=== PATIENT | female | born 1945 | race Caucasian/White ===

== ENCOUNTER 2018-04-14 19:56 | Inpatient (IN) | payer OTHER ==
[~2018-04-14] VITALS: Ht 162.6 cm; Wt 63.0 kg
[2018-04-14 19:59] VITALS: BP 89/52
--- NOTE | 2018-04-14 20:05 | NUR ---
AMBULATED TO ER BED 4
--- NOTE | 2018-04-14 20:10 | NUR ---
72 YO F TO ER WITH C/O DIZZINESS, LOSS OF APPITITE AND DIARRHEA X1WK. PT STATE N/V AFTER EATING. PT STATE THAT SHE HAS "COLD SYMPTOMS" AND FEELS WEAK, DISSZY AND LOSS OF APPITITE. PALE WITH PALE MUCOUS MEMBRANES. MILD WEAKNESS TO EXTREMITIES. PT STATES DIARRHEA X1 PER DAY. PT DENIES ANY ABD PAIN OR SOB AT THIS TIME. O2 SAT AT 91%, AFEBRILE . LS WITH CRACKLES AT BILAT BACES . BS PRESENT AND ACTIVE. CAP REFILL <3 SEC, + PERIFERAL PULSES. ER MD MADE AWARE, WILL CONTINUE TO MONITOR .
[2018-04-14] MEDS ORDERED: LEVOFLOXACIN 500 MG/D5W PREMIX 100 ML IV ONE (20:15)
[2018-04-14] MEDS ORDERED: NACL 0.9% 500 ML IV ONE (20:15)
[2018-04-14 20:26] LABS: BASOPHILS % (AUTO) 0.6 % (0.0-2.0); HEMATOCRIT 33.6 % (36-48); HEMOGLOBIN 11.2 g/dL (12.0-16.0); LYMPHOCYTES # (AUTO) 0.9 K/uL (2.5-16.5); MEAN CORPUSCULAR HEMOGLOBIN 29 pg (27-31); MEAN CORPUSCULAR HGB CONC 33 g/dL (33-37); MEAN CORPUSCULAR VOLUME 85.7 fL (80-94); MONOCYTES # (AUTO) 0.7 K/uL (0.8-1.0); MONOCYTES % (AUTO) 8.1 % (1.7-9.3); NEUTROPHILS # (AUTO) 6.7 K/uL (1.8-7.7); NEUTROPHILS % (AUTO) 80.3 % (42.2-75.2); PLATELET COUNT (AUTO) 189 K/uL (140-450); RED BLOOD CELL COUNT(AUTO) 3.92 MIL/uL (4.20-5.40); RED CELL DISTRIBUTION WIDTH 14.7 % (11.6-13.7); WHITE BLOOD COUNT (AUTO) 8.4 K/uL (4.8-10.8)
[2018-04-14] MEDS ORDERED: NACL 0.9% 1,000 ML IV ONE ×3 (20:35→22:55)
[2018-04-14 20:36] LABS: ANION GAP 15.6 (8-16); CARBON DIOXIDE 24.4 mmol/L (21-32); CHLORIDE 90 mmol/L (98-107); GLUCOSE 180 mg/dL (74-106); SODIUM SERUM 127 mmol/L (136-145); UREA NITROGEN, BLOOD 18 mg/dL (7-18)
[2018-04-14 20:41] LABS: ASPARTATE AMINOTRANSFERASE 40 U/L (15-37); TOTAL BILIRUBIN 1.4 mg/dL (0.0-1.0)
[2018-04-14] MEDS ORDERED: VANCOMYCIN 1,000 MG in DEXTROSE 5% 250 ML IV ONE (21:35)
--- NOTE | 2018-04-14 21:45 | NUR ---
LAB AT BEDSIDE DRAWING BLOOD CULTURES
--- NOTE | 2018-04-14 21:49 | NUR ---
X RAY AT BEDSIDE
[2018-04-14] MEDS ORDERED: NOREPINEPHRINE 4 MG in DEXTROSE 5% 250 ML IV ONE (22:00)
[2018-04-14] MEDS ORDERED: VANCOMYCIN 1,000 MG VIAL ONE (22:05)
[2018-04-14 22:06] LABS: APPEARANCE,URINE CLEAR (CLEAR); BILIRUBIN,URINE 1+ (NEGATIVE); BLOOD, URINE 2+ (NEGATIVE); COLOR,URINE YELLOW (YELLOW); LEUKOCYTE ESTERASE ,URINE NEGATIVE (NEGATIVE); NITRITE, URINE NEGATIVE (NEGATIVE); PH,URINE 6.5 (5.0-9.0); UGLUCOSE NEGATIVE (NEGATIVE)
[2018-04-14] MEDS ORDERED: NOREPINEPHRINE 4 MG/4 ML VIAL IV ONE (22:15)
[2018-04-14] MEDS ORDERED: PIPERACILLIN/TAZOBACTAM 4.5 GM in DEXTROSE 5% 100 ML IV ONE (22:15)
[2018-04-14 22:30] LABS: RBC,URINE 0-5 (RARE) /HPF (0-5); WBC,URINE 0-5 (RARE) /HPF (0-5)
[2018-04-14] MEDS ORDERED: DOCUSATE SODIUM 100 MG GELCAP PO PRN (22:45)
[2018-04-14] MEDS ORDERED: ACETAMINOPHEN 325 MG TAB PO PRN (22:45)
[2018-04-14] MEDS ORDERED: MORPHINE SULFATE 4 MG/ML SYR IVP PRN (22:45)
[2018-04-14] MEDS ORDERED: HYDROcodone/APAP 7.5/325 MG 1 TAB PO PRN (22:45)
[2018-04-14 23:02] LABS: PROTHROMBIN TIME 11.4 secs (10.8-13.4)
[2018-04-14 23:17] LABS: CHOL/HDL RATIO 3.3 (1-4.5); FREE T4 (FREE THYROXINE) 1.31 ng/dL (0.76-1.46); MAGNESIUM 1.9 mg/dL (1.8-2.4); PHOSPHORUS 3.1 mg/dL (2.5-4.9); THYROID STIMULATING HORMONE 2.51 uIU/mL (0.34-3.74)
[2018-04-14] MEDS ORDERED: PIPERACILLIN/TAZOBACTAM 2.25 GM VIAL IV ONE (23:22)
--- NOTE | 2018-04-14 23:39 | NUR ---
PT MOVED FROM ER TO ICU 7. PT DESAT BELOW 92%. INCREASED 02 ON NASAL CANNULA TO 5LPM SAT 94 HR 98 RR 16. WILL CONT TO MONITOR.
--- NOTE | 2018-04-14 23:40 | NUR ---
Patient will be admitted to care of DR LAU . Admited to ICU . Will go to room 7 . Belongings list completed. Report to SONIA OLIVAS .
--- NOTE | 2018-04-14 23:40 | NUR ---
PT ARRIVED VIA GURNEY WITH TAYLOR BEAN RN AND EMT. PT IS BEING ADMITTED TO ICU BED 7.
[2018-04-14 23:50] LABS: CKMB RELATIVE INDEX 0.9 (0.0-2.5); CREATINE KINASE MB 5.6 ng/mL (0-3.6)
[2018-04-14] MEDS: LACTOBACILLUS RHAMNOSUS GG 1 EACH CAP PO SCH (23:50)
[2018-04-14] MEDS ORDERED: hePARIN / DEXT 5% PREMIX 250 ML IV SCH (23:55)
[2018-04-14] MEDS ORDERED: HEPARIN PER PHARMACY MC PRN (23:55)
[2018-04-15] VITALS (20 sets, daily range): BP systolic 90–113; BP diastolic 40–69
[2018-04-15] MEDS ORDERED: FUROSEMIDE 40 MG/4 ML VIAL IVP SCH
[2018-04-15] MEDS ORDERED: PIPER/TAZO 3.375GM/D5W PREMIX 50 ML IV SCH
--- NOTE | 2018-04-15 | NUR ---
PT A&OX4. BAHRAINI SPEAKING. DAUGHTER AND AT BED SIDE. STATED SHE HAD GENERALIZED WEAKNESS INVOLVING DIARRHEA ONCE A DAY AND VOMITING X 2 DAYS. PT CAME IN WITH LEVOPHED BUT NO ADMITTING ORDER NOTED. DR. DAVILA WAS NOTIFIED AND OK TO STOP WITH THE CURRENT BP AND VS. PT DENIES N/V AND DENIES PAIN AT THIS TIME. AFEBRILE. BILATERAL LUNGS SOUND DIMINISHED. O2 5L/MIN VIA NC. RR EVEN AND UNLABORED. BOWEL SOUNDS ACTIVE FROM ALL 4 QUADS. PT ABLE TO MOVE ALL EXTREMITIES BUT NOTED WITH SLIGHT GENERALIZED WEAKNESS. CAP REFILL WITHIN [address] ON MONITOR. WILL CONTINUE TO MONITOR.
[2018-04-15] MEDS ORDERED: hePARIN / DEXT 5% PREMIX 250 ML IV SCH (00:10)
--- NOTE | 2018-04-15 00:35 | NUR ---
HEPARIN BOLUS ADMINISTERED AND INITIAL DRIP STARTED ORDERED.
--- NOTE | 2018-04-15 00:44 | NUR ---
DR. CHEUNG IN TO SEE PT. MD MADE AWARE OF ANOTHER ZOSYN ORDER 3.375MG DUE BUT ZOSYN 4.5MG WAS JUST FINISHED ADMINISTERING. DR. CHEUNG SAID NOT TO GIVE 3.375MG NOW AND SHE WILL CHANGE THE TIME OF NEXT ADMINISTRATION.
--- NOTE | 2018-04-15 00:52 | NUR ---
Russ MAR STARTED.
[2018-04-15] MEDS ORDERED: KCL 20 MEQ/WATER INJ PREMIX 200 ML IV SCH ×2 (01:00→14:00)
--- NOTE | 2018-04-15 02:07 | NUR ---
PT O2 SAT BELOW 92% ON NC 5LPM. PLACED PT ON 15LPM NON REBREATHER. WILL CONT TO MONITOR PT. SAT 99 HR 108 RR 22.
--- NOTE | 2018-04-15 02:15 | NUR ---
NOTED WITH BLOOD TINGED SPUTUM; DR. DAVILA INFORMED AND AWARE; WITH NEW ORDER.
--- NOTE | 2018-04-15 02:20 | NUR ---
PLACED PT ON BIPAP 10/24 12 50%. WILL CONT TO MONITOR PT.
--- NOTE | 2018-04-15 02:51 | NUR ---
DR. DAVILA AT BED SIDE SPEAKING TO THE DAUGHTER AND .
--- NOTE | 2018-04-15 03:00 | NUR ---
FOR CT CHEST, ABDOMEN AND PELVIS WITH/WITHOUT CONTRAST; CONSENT FOR THE PROCEDURE TAKEN FROM PATIENT'S DAUGHTER LAURA AFTER EXPLAINING THE PROCEDURE TO HER. CT HEAD WAS ALSO ORDERED BUT PER DR. DAVILA IT CAN ALL BE DONE LATER WHEN PATIENT IS PRETTY MUCH RELAX AND STABLE.
[2018-04-15] MEDS ORDERED: PIPERACILLIN/TAZOBACTAM 3.375 GM VIAL IV ONE (03:02)
--- NOTE | 2018-04-15 04:06 | NUR ---
LAB AT BED SIDE.
--- NOTE | 2018-04-15 04:22 | NUR ---
AFEBRILE. VSS. DENIES PAIN. ASSISTED WITH BED [place]. PT ABLE TO PERFORM HYGIENE BY HERSELF. REPOSITIONED FOR COMFORT. WILL CONTINUE TO MONITOR.
[2018-04-15] MEDS: PIPER/TAZO 3.375GM/D5W PREMIX 50 ML IV SCH ×3 (05:19→21:35)
--- NOTE | 2018-04-15 05:20 | NUR ---
DR. DAVILA CAME TO SPEAK TO THE FAMILY REGARDING THE CODE STATUS AND THE FAMILY DECIDED TO CHANGE TO MODIFIED CODE, NO CHEST COMPRESSION, NO INTUBATION, OK FOR BIPAP AND ACLS DRUGS BECAUSE IT'S THE PT'S WISH.
--- NOTE | 2018-04-15 05:25 | NUR ---
NOTED STAT ORDERS FOR CT CHEST, ABD, AND HEAD. CALLED RADIOLOGY AND THEY ARE SEEING OTHER PT AT THIS TIME AND WILL CALL US ONCE THEY ARE READY FOR ICU 7. DR. DAVILA MADE AWARE.
--- NOTE | 2018-04-15 05:45 | NUR ---
PT IS BEING TRANSFERRED TO CT SCAN AT THIS TIME.
[2018-04-15] MEDS ORDERED: MAG SULF 2000 MG/WATER PREMIX 50 ML IV SCH (06:30)
--- NOTE | 2018-04-15 06:35 | NUR ---
BACK FROM CT SCAN WITH STABLE CONDITION. PTT LAB DRAWN.
[2018-04-15] MEDS: LEVOTHYROXINE 0.025 MG TAB PO SCH (06:44)
--- NOTE | 2018-04-15 06:46 | NUR ---
RECEIVED PT ON NRB FROM [facility] TO 8L OXYMIZER SPO2 88-[address] 12\6 RR 12 FIO2 45 ALARMS ARE ON AND AUDIBLE PLACED BMV HOB PT WEARING F\F MASK SIZE MED FAMILY MEMBERS PRESENT GEL PLACED UNDER MASK SLIGHT BIPAP PLUGGED INTO RED OUTLET
--- NOTE | 2018-04-15 07:26 | NUR ---
RECEIVED PATIENT FROM [facility] RN FOR CONTINUITY OF CARE. PATIENT IS AWAKE AND ORIENTED X4. ABLE TO MAKE HER NEEDS KNON. SKIN WARM TO TOUCH WNL, NO EDEMA, WITH FINE HAIR GROWTH, TOENAILS WNL AND +2 BILATERAL PEDAL PULSES. RAC PERIPHERAL IV PATENT AND INTACT TO HEPARIN AT 800 UNITS/HR. LAC PERIPHERAL IV PATENT AND INTACT TO NS AT 125 CC/H. URINE AND BOWEL CONTINENT. ON BIPAP AT 50% FIO2, SAT AT 97%. ABLE TO TURN SELF WITHOUT ASSISTANCE. SAFETY MEASURES IN PLACE. WILL CONTINUE TO MONITOR PATIENT.
--- NOTE | 2018-04-15 07:28 | NUR ---
REPORT GIVEN TO MORNING NURSE FOR CONTINUITY OF CARE. VSS. ALL SAFETY PRECAUTIONS ARE IN PLACE.
--- NOTE | 2018-04-15 08:10 | NUR ---
PATIENT'S AT BEDSIDE, UPDATED OF PATIENT'S CONDITION.
[2018-04-15] MEDS: LACTOBACILLUS RHAMNOSUS GG 1 EACH CAP PO SCH ×2 (08:51→21:36)
[2018-04-15] MEDS: ASPIRIN 81 MG TAB.CHEW PO SCH (08:51)
[2018-04-15] MEDS ORDERED: FUROSEMIDE 20 MG/2 ML VIAL IVP SCH (09:00)
[2018-04-15] MEDS ORDERED: METOPROLOL 25 MG TAB PO SCH (09:00)
[2018-04-15] MEDS ORDERED: ENALAPRIL 10 MG TAB PO SCH (09:00)
[2018-04-15] MEDS: FUROSEMIDE 20 MG/2 ML VIAL IVP SCH ×2 (09:00→21:35)
[2018-04-15] MEDS: LISINOPRIL 10 MG TAB PO SCH (09:00)
[2018-04-15] MEDS ORDERED: HYDROCHLOROTHIAZIDE 25 MG TAB PO SCH (09:00)
--- NOTE | 2018-04-15 09:00 | NUR ---
LASIX, METOPROLOL AND LISINOPRIL WITHELD AT THIS TIME DUE TO LOW BP, DR. LISA MADE AWARE.
--- NOTE | 2018-04-15 10:23 | NUR ---
FAMILY AT BEDSIDE. NO CONCERNS OR QUESTIONS AT THIS TIME
[2018-04-15] MEDS: NACL 0.9% 1,000 ML IV SCH ×2 (10:36)
--- NOTE | 2018-04-15 10:37 | NUR ---
ECHO BEING DONE AT BEDSIDE BY FIELD MANAGER
--- NOTE | 2018-04-15 10:45 | NUR ---
DR. OVIEDO AND GROUP ROUNDING, WILL FOLLOW UP WITH ORDERS.
--- NOTE | 2018-04-15 11:45 | NUR ---
DR. JOSEPH IN SEEN AND EXAMINED PATIENT. WILL FOLLOW UP WITH ORDERS.
--- NOTE | 2018-04-15 12:52 | NUR ---
PATIENT HAS BEEN SCREENED AND CATEGORIZED HIGH NUTRITION RISK. PATIENT WILL BE SEEN WITHIN 1-2 DAYS OF ADMISSION. 04/15/18 - 04/16/18 ANA SNELL MBA, RD
[2018-04-15 13:13] LABS: BASOPHILS % (AUTO) 0.4 % (0.0-2.0); HEMATOCRIT 31.8 % (36-48); HEMOGLOBIN 10.7 g/dL (12.0-16.0); LYMPHOCYTES # (AUTO) 0.8 K/uL (2.5-16.5); LYMPHOCYTES % (AUTO) 8.6 % (20.5-51.1); MEAN CORPUSCULAR HEMOGLOBIN 29 pg (27-31); MEAN CORPUSCULAR HGB CONC 34 g/dL (33-37); MEAN CORPUSCULAR VOLUME 85.1 fL (80-94); MONOCYTES # (AUTO) 0.8 K/uL (0.8-1.0); MONOCYTES % (AUTO) 8.7 % (1.7-9.3); NEUTROPHILS # (AUTO) 7.8 K/uL (1.8-7.7); NEUTROPHILS % (AUTO) 82.3 % (42.2-75.2); PLATELET COUNT (AUTO) 190 K/uL (140-450); RED BLOOD CELL COUNT(AUTO) 3.73 MIL/uL (4.20-5.40); RED CELL DISTRIBUTION WIDTH 14.9 % (11.6-13.7); WHITE BLOOD COUNT (AUTO) 9.5 K/uL (4.8-10.8)
[2018-04-15 13:26] LABS: ANION GAP 15.4 (8-16); CARBON DIOXIDE 22.4 mmol/L (21-32); CHLORIDE 97 mmol/L (98-107); CREATININE 0.7 mg/dL (0.6-1.3); GLUCOSE 143 mg/dL (74-106); SODIUM SERUM 132 mmol/L (136-145); UREA NITROGEN, BLOOD 11 mg/dL (7-18)
[2018-04-15 13:30] LABS: MAGNESIUM 2.4 mg/dL (1.8-2.4); PHOSPHORUS 2.4 mg/dL (2.5-4.9); POTASSIUM 2.8 mmol/L (3.5-5.1)
--- NOTE | 2018-04-15 14:15 | NUR ---
DR. RICH IN, SEEN AND EXAMINED PATIENT. DR. RICH DISCUSSED RECOMMENDATIONS FOR HIGHER LEVEL OF CARE WITH PATIENT'S DAUGHTER MOO AND BAILEE. BOTH VERBALIZED UNDERSTANDING. PATIENT'S DAUGHTER MOO STATED THAT SHE WILL DISCUSS IT WITH OTHER MEMBERS OF THE FAMILY.
[2018-04-15] MEDS ORDERED: POTASSIUM CHLORIDE 40 MEQ, LIDOCAINE 1% 25 MG in NACL 0.9% 250 ML IV SCH (15:00)
[2018-04-15] MEDS ORDERED: LAS20I IVP (16:22)
[2018-04-15] MEDS ORDERED: ASPI81CT95 PO (16:22)
[2018-04-15] MEDS ORDERED: LISI10TA11 PO (16:22)
[2018-04-15] MEDS ORDERED: DOCU-299 PO (16:22)
[2018-04-15] MEDS ORDERED: ATOR20TA40 PO (16:22)
[2018-04-15] MEDS ORDERED: MORP4SOL10 IVP (16:22)
[2018-04-15] MEDS ORDERED: ACET-9529 PO (16:22)
[2018-04-15] MEDS ORDERED: LEVO0.0211 PO (16:22)
[2018-04-15] MEDS ORDERED: HEPA500056 SUBQ (16:22)
[2018-04-15] MEDS ORDERED: LACT10CA PO (16:22)
[2018-04-15] MEDS ORDERED: PIPE50SO5 IV (16:22)
[2018-04-15] MEDS ORDERED: ACET-1182 PO (16:22)
[2018-04-15] MEDS ORDERED: PIPE1SOL IV (16:27)
--- NOTE | 2018-04-15 19:15 | NUR ---
REPORT GIVEN TO NOC RN FOR CONTINUITY OF CARE. PATIENT INS STABLE CONDITION.
--- NOTE | 2018-04-15 19:20 | NUR ---
RECEIVED BEDSIDE REPORT FROM MORNING NURSE, PATIENT A&OX4. SWAZI SPEAKING, ABLE TO UNDERSTAND MALAYSIAN. ABLE TO MAKE NEEDS KNOWN. PATIENT ON BIPAP IPAP 12, EPAP 6, O2 45%, RATE 12, I TIME 1.00. BILATERAL LUNG SOUND DIMINISHED. NO ACUTE RESPIRATORY DISTRESS NOTED. NO FEVER. ACTIVE BOWEL SOUNDS FROM ALL 4 QUADS. PATIENT HAS PERIPHERAL TO LEFT AC 20G, LEFT HAND 22G, LINES INTACT AND PATENT. PATIENT ABLE TO MOVE ALL EXTREMITIES BUT WITH GENERALIZED WEAKNESS. SR TO ST ON MONITOR. NO FEVER, NO NAUSEA/VOMIT. BED IN LOW POSITION AND HOB ELEVATED 30 DEGREE. CALL LIGHT WITHIN REACH. WILL CONTINUE TO MONITOR.
[2018-04-15] MEDS ORDERED: ATORVASTATIN 20 MG TAB PO SCH (21:00)
--- NOTE | 2018-04-15 21:30 | NUR ---
ADMINISTERED SCHEDULED MEDICATIONS ORDERED, TOLERATED WELL. PATIENT DENIES N/V AND PAIN. NO ACUTE DISTRESS NOTED. TOLERATED WELL WITH BIPAP. 02 SAT ABOVE 90%. WILL CONTINUE TO MONITOR.
[2018-04-15] MEDS: SIMVASTATIN 40 MG TAB PO SCH (21:36)
--- NOTE | 2018-04-15 23:20 | NUR ---
PATIENT IS IN ASLEEP, AROUSABLE TO VOICE, ON BIPAP, TOLERATED WELL. NO ACUTE DISTRESS NOTED. DENIES PAIN. WILL CONTINUE TO MONITOR.
[2018-04-16] VITALS (20 sets, daily range): BP systolic 76–99; BP diastolic 38–63
--- NOTE | 2018-04-16 01:50 | NUR ---
PATIENT IN ASLEEP, AROUSABLE TO VOICE. SR ON THE MONITOR. NO ACUTE RESPIRATORY DISTRESS NOTED. DENIES PAIN. NO N/V. WILL CONTINUE TO MONITOR.
--- NOTE | 2018-04-16 03:30 | NUR ---
PATIENT IN ASLEEP, NO ACUTE DISTRESS NOTED, TOLERATED WELL WITH BIPAP. DENIES PAIN. WILL CONTINUE TO MONITOR.
[2018-04-16 04:59] LABS: BASOPHILS % (AUTO) 0.4 % (0.0-2.0); EOSINOPHILS % (AUTO) 0.1 % (0.0-4.0); HEMATOCRIT 29.6 % (36-48); HEMOGLOBIN 9.9 g/dL (12.0-16.0); LYMPHOCYTES # (AUTO) 0.9 K/uL (2.5-16.5); LYMPHOCYTES % (AUTO) 9.3 % (20.5-51.1); MEAN CORPUSCULAR HEMOGLOBIN 29 pg (27-31); MEAN CORPUSCULAR HGB CONC 34 g/dL (33-37); MONOCYTES % (AUTO) 9.9 % (1.7-9.3); NEUTROPHILS # (AUTO) 8.1 K/uL (1.8-7.7); NEUTROPHILS % (AUTO) 80.3 % (42.2-75.2); PLATELET COUNT (AUTO) 188 K/uL (140-450); RED BLOOD CELL COUNT(AUTO) 3.44 MIL/uL (4.20-5.40); RED CELL DISTRIBUTION WIDTH 15.3 % (11.6-13.7)
[2018-04-16] MEDS: PIPER/TAZO 3.375GM/D5W PREMIX 50 ML IV SCH ×3 (05:43→21:16)
--- NOTE | 2018-04-16 05:50 | NUR ---
ADMINISTERED SCHEDULED IV ABX ORDERED. TOLERATED WELL. NO ACUTE DISTRESS. WILL CONTINUE TO MONITOR.
[2018-04-16 06:00] LABS: MAGNESIUM 2.3 mg/dL (1.8-2.4)
[2018-04-16 06:01] LABS: PHOSPHORUS 2.8 mg/dL (2.5-4.9)
[2018-04-16 06:15] LABS: ANION GAP 11.9 (8-16); CARBON DIOXIDE 27.1 mmol/L (21-32); CHLORIDE 98 mmol/L (98-107); SODIUM SERUM 134 mmol/L (136-145)
[2018-04-16 06:16] LABS: CREATININE 0.9 mg/dL (0.6-1.3); GLUCOSE 123 mg/dL (74-106); UREA NITROGEN, BLOOD 14 mg/dL (7-18)
--- NOTE | 2018-04-16 06:24 | NUR ---
REC'D PT ON LINN V60 BIPAP SETTINGS /6 RR 12 FIO2 45% ALARMS ON AND AUDIBLE AND FUNCTIONING PROPERLY, AMBU BAG AT SIDE OF BIPAP AND BIPAP IS PLUGGED INTO RED OUTLET. B\S ARE DIMINISHED BILATERALLY, PT IS WEARING MED FACE MASK WITH PROTETIC GEL IN PLACE, PT HAS REDNESS ON BRIDGE OF NOSE, PT IS RESTING WITH NO SIGNS OF DISTRESS NOTED AT THIS TIME
[2018-04-16] MEDS: LEVOTHYROXINE 0.025 MG TAB PO SCH (06:30)
--- NOTE | 2018-04-16 07:30 | NUR ---
BEDSIDE REPORT GIVEN TO MORNING SHIFT NURSE.
--- NOTE | 2018-04-16 07:31 | NUR ---
RECEIVED REPORT FROM MORNING NURSE AT BEDSIDE, PATIENT IS AA&OX4, ABLE TO FOLLOW COMMANDS AND MAKE NEEDS KNOWN, ON BIPAP IPAP 12, EPAP 6, O2 45%, RATE 12, I TIME 1.00. CRACKLES LUNG SOUND SUZIE. DENIES CHEST PAIN, SR ON DESIGN EDITOR. SOFT ABDOMEN WITH ACTIVE BOWEL SOUNDS. CONTINENT WITH B&B'S, ABLE TO MOVE ALL EXTREMITIES, SLIGHT WEAKNESS NOTED, SKIN IS INTACT, WARM AND DRY TO TOUCH, PERIPHERAL LINE TO LEFT AC 20G AND LEFT HAND 22G, PATENT AND SL. DENIES PAIN, VSS, EXPLAINED THE PLAN OF CARE TO PT, PT VERBALIZED UNDERSTANDING. HOB ELEVATED TO 30 DEGREES, SAFETY MEASURES IN PLACE, CALL LIGHT WITHIN REACH, WILL CONTINUE TO MONITOR.
[2018-04-16] MEDS ORDERED: POTASSIUM CHLORIDE 10 MEQ TABER PO SCH (07:40)
[2018-04-16] MEDS: LACTOBACILLUS RHAMNOSUS GG 1 EACH CAP PO SCH ×2 (08:53→21:16)
[2018-04-16] MEDS: LISINOPRIL 10 MG TAB PO SCH (08:53)
[2018-04-16] MEDS: ASPIRIN 81 MG TAB.CHEW PO SCH (08:53)
[2018-04-16] MEDS: FUROSEMIDE 20 MG/2 ML VIAL IVP SCH ×2 (08:56→21:17)
--- NOTE | 2018-04-16 09:10 | NUR ---
SCHEDULED MEDICATION GIVEN, PT IS ABLE TO SWALLOW PILLS WHOLE, TOLERATED WELL.
--- NOTE | 2018-04-16 09:49 | NUR ---
RECEIVED ORDER FOR TRANSFER TO HIGHER LEVEL OF CARE FAXED INQUIRY TO [facility] PHONE [phone] FAX [phone]. FA[facility]QU[facility] TO [facility] FAX [phone] PHONE [phone]. I CALLED AND SPOKE WITH FABI.
--- NOTE | 2018-04-16 10:23 | NUR ---
CALLED TRANSFER CENTER AT [facility] AND SPOKE WITH PETERSON. SHE SAID SINCE THE PATIENT DX IS SEPSIS AND PNEUMONIA, THEIR SURGEON WILL NOT TAKE THIS PATIENT UNTIL THE INFECTION IS CLEARED. PHONE TRANSFER CENTER [phone]. I RECEIVED A CALL FROM JOSE FROM [facility] . HE SAID THIS PATIENT HAS BEEN ACCEPTED AND THEY ARE LOOKING FOR A BED.
--- NOTE | 2018-04-16 11:20 | NUR ---
PT HAD A LARGE SOFT YELLOW STOOL, [facility] PROVIDED, STOOL SAMPLE SEND TO LAB ORDERED.
--- NOTE | 2018-04-16 13:00 | NUR ---
CENTRAL LINE INSERTION PROCEDURE EXPLAINED BY DR. CHARLES AT BEDSIDE, PT ABLE TO UNDERSTAND [place] AND SIGNED CONSENT, PT'S DAUGHTER AT BEDSIDE, VERBALIZED UNDERSTANDING.
--- NOTE | 2018-04-16 13:23 | NUR ---
PT OFF BIPAP PLACED ON OXYMIZER AT 5L BY NURSE PT IS AWAKE AND ALERT WITH NO SIGNS OF DISTRESS NOTED AT THIS TIME FAMILY AT BEDSIDE
--- NOTE | 2018-04-16 13:45 | NUR ---
USED THE BEDPAN. HAD MODERATE AMOUNT DARK BROWNISH STOOLS. UNABLE TO COLLECT AND SEND STOOL SPECIMEN . CONTAMINATED WITH URINE. PERINEAL CARE DONE.
[2018-04-16] MEDS ORDERED: LORazepam 2 MG/ML VIAL IVP SCH (14:30)
--- NOTE | 2018-04-16 14:30 | NUR ---
DR. CHARLES INSERTED CENTRAL LINE TO [facility], TIME OUT AT 1405, X-RAY DONE AT BEDSIDE AFTER INSERTION.
--- NOTE | 2018-04-16 14:45 | NUR ---
EARLIER CALLED [facility] AND SPOKE WITH JOSE. THE PATIENT HAS BEEN ACCEPTED TO [facility]. RAILWAY HEAD TENDER IS DR. TUCKER. WAITING FOR A BED. CALLED [facility] AND SPOKE WITH DOMINICK. THE HAVE THE INFORMATION AND IS REVIEWING. I SPOKE WITH THE PATIENT'S SON, SHANAE AND INFORMED HIM.
--- NOTE | 2018-04-16 15:13 | NUR ---
04/16/18 RD INITIAL ASSESSMENT COMPLETED PLEASE REFER TO NUTRITION ASSESSMENT UNDER CARE ACTIVITY FOR ESTIMATED NUTRITIONAL NEEDS. 1. CONTINUE CARDIAC DIET TOLERATED 2. RECOMMEND BOOST PLUS TID WITH MEALS TO ENCOURAGE INCREASED PO INTAKE. 3. RD TO FOLLOW-UP 2-3 DAYS, HIGH RISK MARIO LIPSCOMB, RD
[2018-04-16] MEDS ORDERED: NOREPINEPHRINE 8 MG in DEXTROSE 5% 250 ML IV PRN (15:35)
--- NOTE | 2018-04-16 16:00 | NUR ---
NO S/S OF DISTRESS, LOW BP NOTED, MD AWARE, WILL MEDICATED, PT'S DAUGHTER AT BEDSIDE.
--- NOTE | 2018-04-16 16:11 | NUR ---
CALLED [facility] AND SPOKE WITH JOSE, . STILL WAITING FOR A BED. I GAVE HIM THE PHONE NUMBER TO THE ICU TO CALL IF A BED BECOMES AVAILABLE. THE SON CALLED ME AND SAID THAT IF TRANSFER TO [facility] WAS DETERMINED BY FINANCIAL, FAMILY WOULD BE WILING TO PAY. I CALLED [facility] AND SPOKE WITH YISSEL RALPH TOLD HIM WHAT THE FAMILY SAID. HE SAID IT STILL HAS TO GO THROUGH FINANCIAL CLEARANCE AND THEN THEY WOULD HAVE TO GET AN ACCEPTING PHYSICIAN. HE DID SAY THAT AT PRESENT THEY HAVE NO BEDS. PHONE [phone].
--- NOTE | 2018-04-16 18:00 | NUR ---
DR. RICH CAME IN TO SEE PT AT BEDSIDE, REPORT THE BP CONDITION, DR. RICH SAID CONTINUE TO MONITOR, TRY NOT TO GIVE VASOPRESSORS IF POSSIBLE.
--- NOTE | 2018-04-16 19:23 | NUR ---
REPORT GIVEN TO TRUCK PACKER NURSE FOR CONTINUE OF CARE, PT IS IN STABLE CONDITION AT THIS TIME.
--- NOTE | 2018-04-16 19:30 | NUR ---
RECEIVED BEDSIDE REPORT FROM MORNING NURSE, PATIENT AAO X4. UPPER SORBIAN SPEAKING, ABLE TO UNDERSTAND UZBE[place]. ABLE TO MAKE NEEDS KNOWN. PATIENT ON OXYMIZER OXYGEN 6L/MIN, O2 SAT 92% NOTED. BILATERAL LUNG SOUND DIMINISHED. NO ACUTE RESPIRATORY DISTRESS NOTED. ACTIVE BOWEL SOUNDS FROM ALL 4 QUADS. PATIENT HAS CENTRAL LINE TO RIGHT IJ TRIPLE LUMENS, PERIPHERAL TO LEFT AC 20G, LEFT HAND 22G, LINES INTACT AND PATENT. PATIENT ABLE TO MOVE ALL EXTREMITIES BUT WITH GENERALIZED WEAKNESS. SR TO ST ON MONITOR. NO FEVER, NO NAUSEA/VOMIT. BED IN LOW POSITION AND HOB ELEVATED 30 DEGREE. CALL LIGHT WITHIN REACH. WILL CONTINUE TO MONITOR.
[2018-04-16] MEDS: SIMVASTATIN 40 MG TAB PO SCH (21:16)
--- NOTE | 2018-04-16 21:30 | NUR ---
ADMINISTERED SCHEDULED MEDICATIONS ORDERED, PATIENT TOLERATED WELL. NO ACUTE DISTRESS NOTED. DENIES PAIN. WILL CONTINUE TO MONITOR.
--- NOTE | 2018-04-16 22:15 | NUR ---
FAMILY MEMBERS AND FREIGHT CLERK AT BEDSIDE TO PRAY FOR HER.
[2018-04-17] VITALS (9 sets, daily range): BP systolic 81–93; BP diastolic 42–56
--- NOTE | 2018-04-17 | NUR ---
PATIENT IN ASLEEP WITH BIPAP, TOLERATED WELL. NO ACUTE DISTRESS NOTED. DENIES PAIN AT THIS TIME. WILL CONTINUE TO MONITOR.
--- NOTE | 2018-04-17 02:00 | NUR ---
PATIENT HAD CLEAR YELLOW URINATION 150ML NOTED. TOLERATED WELL WITH BIPAP. O2 SAT ABOVE 95%. WILL CONTINUE TO MONITOR.
--- NOTE | 2018-04-17 04:00 | NUR ---
PATIENT IN ASLEEP, AROUSABLE TO VOICE. NO ACUTE DISTRESS NOTED. DENIES PAIN AT THIS TIME. BP 93/47 NOTED. TOLERATED WELL WITH BIPAP, 02 SAT 100%. WILL CONTINUE TO MONITOR.
[2018-04-17] MEDS: PIPER/TAZO 3.375GM/D5W PREMIX 50 ML IV SCH (04:35)
[2018-04-17 04:48] LABS: BASOPHILS % (AUTO) 0.6 % (0.0-2.0); EOSINOPHILS % (AUTO) 0.4 % (0.0-4.0); HEMOGLOBIN 9.6 g/dL (12.0-16.0); LYMPHOCYTES % (AUTO) 11.7 % (20.5-51.1); MEAN CORPUSCULAR HEMOGLOBIN 29 pg (27-31); MEAN CORPUSCULAR HGB CONC 33 g/dL (33-37); MEAN CORPUSCULAR VOLUME 86.3 fL (80-94); MONOCYTES # (AUTO) 0.7 K/uL (0.8-1.0); MONOCYTES % (AUTO) 8.3 % (1.7-9.3); NEUTROPHILS # (AUTO) 6.8 K/uL (1.8-7.7); PLATELET COUNT (AUTO) 203 K/uL (140-450); RED BLOOD CELL COUNT(AUTO) 3.36 MIL/uL (4.20-5.40); WHITE BLOOD COUNT (AUTO) 8.6 K/uL (4.8-10.8)
[2018-04-17 05:59] LABS: CHLORIDE 97 mmol/L (98-107); CREATININE 0.7 mg/dL (0.6-1.3); GLUCOSE 110 mg/dL (74-106); SODIUM SERUM 132 mmol/L (136-145); UREA NITROGEN, BLOOD 20 mg/dL (7-18)
[2018-04-17] MEDS: LEVOTHYROXINE 0.025 MG TAB PO SCH (06:01)
[2018-04-17 06:09] LABS: MAGNESIUM 2.1 mg/dL (1.8-2.4); PHOSPHORUS 2.8 mg/dL (2.5-4.9)
[2018-04-17 06:22] LABS: T4 (THYROXINE) 10.1 ug/dL (4.5-12.0)
--- NOTE | 2018-04-17 07:20 | NUR ---
REPORT RECEIVED FROM MILK VENDOR AT BEDSIDE. PATIENT OPENS EYES TO VOICE BUT UNABLE TO FOLLOW COMMANDS. ETT TO VENT AND SETTING AT FIO2 100%, TV 300, AC RATE 14, PEEP 5. RIGHT IJ MAKAYLA CATHETER AND LEFT ARM PICC LINE IN PLACE. GENERALIZED BODY EDEMATOUS, ABDOMEN DISTENDED. G-TUBE IN PLACE AND GRADY CATHETER PLACEMENT. ON LEVOPHED DRIP AT 30MCG/MIN. CONTACT ISOLATION PRECAUTION FOR VRE IN URINE, ESBL IN SPUTUM. SING POSTED AT OUTSIDE OF DOOR. WILL CONTINUE TO MONITOR. Addendum: 04/17/18 at 0844 by Dorian Lawler RN WRONG CHART
--- NOTE | 2018-04-17 07:30 | NUR ---
RECEIVED A REPORT AT BEDSIDE. PATIENT IS AAOX4. DENIES ANY PAIN AT THIS TIME. NOTED RIGHT IJ CENTRAL LINE AND PERIPHERAL IV LINE ON LEFT HAND. SKIN WARM TO TOUCH AND INTACT. ON BIPAP AT 12/6. SCD IN PLACE. SINUS RHYTHM ON THE MONITOR. SYSTOLIC BP 80's AND ACCORDING TO REPORT, THE ORDER IS TO MAINTAIN SBP >80 AND CALL MD FOR BELOW 70. PATIENT DENIES CHEST PAIN AND ASYMPTOMATIC OF HEART ATTACK AT THIS TIME. IMPLEMENTED SAFETY PRECAUTION, BED IN LOW POSITION, CALL LIGHT WITHIN REACH. WAITING FOR TRANSPORTATION TO TRANSFER TO [facility] FOR HIGHER LEVEL OF CARE.
--- NOTE | 2018-04-17 07:40 | NUR ---
RECEIVED PATIENT ON BIPAP ST SETTINGS:10/24, RATE 12, I-TIME 1.00, 50%. TOLERATING WELL. CONTINUOUS PULSE OX ON AND FUNCTIONING. PATIENT TAKEN OFF BIPAP AT 0736 AND PLACED ON 5L OXYMIZER, O2 SAT 98%. NO RESPIRATORY DISTRESS NOTED AT THIS TIME. WILL CONTINUE TO MONITOR.
--- NOTE | 2018-04-17 07:50 | NUR ---
RESIDENT GROUP IN TO SEE PATIENT. WILL FOLLOW UP ON ORDERS.
[2018-04-17] MEDS ORDERED: POTASSIUM CHLORIDE 10 MEQ TABER PO SCH (08:00)
--- NOTE | 2018-04-17 08:00 | NUR ---
PATIENT'S DAUGHTERS ARE HERE AT BEDSIDE AND AWARE OF TRANSFER. ALL PERSONAL BELONGINGS NOT AT BEDSIDE AND TAKEN BY DAUGHTER.
--- NOTE | 2018-04-17 08:16 | NUR ---
CALLED [facility] AND SPOKE WITH FABI. INFORMED HER THAT PATIENT WILL BE GOING TO ANOTHER FACILITY.
--- NOTE | 2018-04-17 08:30 | NUR ---
TRANSPORTATION HERE. ALL COPIES OF MEDICAL RECORD AND REPORT GIVEN.
--- NOTE | 2018-04-17 08:40 | NUR ---
PATIENT LEFT VIA GURNEY BY [facility] TRANSPORTATION.
== END 2018-04-17 08:40 | disposition short-term general hospital (02) | DRG 280 ==
LOC: MED 19:56 → UNDOADMIN 22:41 → MIC 22:41
PROVIDERS: ADMIT Student in an Organized Health Care Education/Training Program; ATTEND Student in an Organized Health Care Education/Training Program
PROC: 5A09457 Assistance with Respiratory Ventilation, 24-96 Consecutive Hours, Continuous Positive Airway Pressure (ICD-10-PCS; principal; 2018-04-15)
PROC: 02HV33Z Insertion of Infusion Device into Superior Vena Cava, Percutaneous Approach (ICD-10-PCS; 2018-04-16)
PROC: 5A09357 Assistance with Respiratory Ventilation, Less than 24 Consecutive Hours, Continuous Positive Airway Pressure (ICD-10-PCS; 2018-04-17)
DX: I35.0 Nonrheumatic aortic (valve) stenosis (principal); I50.43 Acute on chronic combined systolic (congestive) and diastolic (congestive) heart failure; I21.A1 Myocardial infarction type 2; J69.0 Pneumonitis due to inhalation of food and vomit; J96.01 Acute respiratory failure with hypoxia; N17.0 Acute kidney failure with tubular necrosis; I42.9 Cardiomyopathy, unspecified; E83.39 Other disorders of phosphorus metabolism; E44.0 Moderate protein-calorie malnutrition; E87.1 Hypo-osmolality and hyponatremia; D50.9 Iron deficiency anemia, unspecified; E11.9 Type 2 diabetes mellitus without complications; E86.0 Dehydration; E87.6 Hypokalemia; D64.9 Anemia, unspecified; I11.0 Hypertensive heart disease with heart failure; K21.9 Gastro-esophageal reflux disease without esophagitis; E07.9 Disorder of thyroid, unspecified; K52.9 Noninfective gastroenteritis and colitis, unspecified; E87.8 Other disorders of electrolyte and fluid balance, not elsewhere classified; E03.9 Hypothyroidism, unspecified; R74.0 Nonspecific elevation of levels of transaminase and lactic acid dehydrogenase [LDH]; R80.9 Proteinuria, unspecified; K80.20 Calculus of gallbladder without cholecystitis without obstruction; E83.51 Hypocalcemia
CPT/HCPCS: 36415; 36600; 70450; 71045; 71275; 80048; 80053; 81001; 82140; 82150; 82550; 82553; 82803; 83036; 83605; 83615; 83690; 83735; 83880; 84100; 84436; 84439; 84443; 84479; 84484; 85025; 85379; 85610; 85730; 87040; 87045; 87081; 87205; 89055; 89220; 93005; 93970; 94660; 96361; 96365; 96367; 96368; 99291; J1642; J1644; J1940; J1956; J2001; J2543; J3370; J3475; J3480; J3490; J7030; J7060; Q0092; Q9967